=== PATIENT | male | born 1975 | race Caucasian/White ===

== ENCOUNTER 2021-07-15 11:46 | Outpatient (CLI) | payer BC, SELFPAY ==
[2021-07-15 12:20] VITALS: BMI 34.9
[2021-07-15 12:50] VITALS: BP 156/109; PULSE 94; RESP 18; TEMP 36.9; O2SAT 98
[2021-07-15 13:21] VITALS: BP 138/93; PULSE 85; RESP 18; TEMP 36.9; O2SAT 96
[2021-07-15 14:20] VITALS: BP 137/99; PULSE 89; RESP 18; TEMP 37; O2SAT 97
== END 2021-07-15 11:47 | disposition home or self-care (01) ==
LOC: OPS 11:49
PROVIDERS: PCP Nurse Practitioner Family; Visit Provider Nurse Practitioner Family
DX: U07.1 COVID-19 (principal)
CPT/HCPCS: 96365

== ENCOUNTER 2022-07-13 12:41 | Outpatient (CLI) | payer BC, SELFPAY ==
--- NOTE | 2022-07-13 12:59 | XRR_ITS ---
PROCEDURE INFORMATION: Exam: XR Abdomen Exam date and time: 07/13/2022 12:59 PM Age: 46 years old Clinical indication: Bloating; Abdominal pain; Generalized; Prior surgery; Surgery type: Hernia; Additional info: Abdominal pain rlq, bloating TECHNIQUE: Imaging protocol: Radiologic exam of the abdomen. Views: 2 Views. Upright and supine views. COMPARISON: CR XR KUB [id number] 07/02/2017 7:57 AM FINDINGS: Gastrointestinal tract: Normal. No bowel dilation. Intraperitoneal space: Normal. No free air. Bones/joints: Unremarkable for age. XR/XR abdomen min 2V [id number] IMPRESSION: No acute findings.
== END 2022-07-13 12:42 | disposition home or self-care (01) ==
PROVIDERS: PCP Family Medicine; Visit Provider Family Medicine
DX: R10.31 Right lower quadrant pain (principal); R14.0 Abdominal distension (gaseous)
CPT/HCPCS: 74019